=== PATIENT | female | born 1965 | race Caucasian/White ===

== ENCOUNTER 2023-10-17 14:26 | Emergency (ER) | payer OTHER ==
[~2023-10-17] VITALS: Ht 175.3 cm; Wt 90.2 kg
[2023-10-17] MEDS ORDERED: VENTOLIN HFA18 GM INH (14:42)
[2023-10-17] MEDS ORDERED: CARVEDILOL3.125 MG PO (14:42)
[2023-10-17] MEDS ORDERED: PRAVASTATIN SOD20 MG PO (14:42)
[2023-10-17] MEDS ORDERED: ALBUTEROL/IPRATROPIUM 3 ML NEB INH ONE (16:45)
[2023-10-17] MEDS ORDERED: predniSONE 20 MG TAB PO ONE (18:30)
[2023-10-17] MEDS ORDERED: PREDNISONE20 MG PO (18:30)
[2023-10-17 18:41] VITALS: BP 135/83
--- NOTE | 2023-10-17 21:37 | EKG ---
[facility] [address] [place] [address] Signed Normal sinus rhythm Nonspecific ST and T wave abnormality Abnormal ECG No previous ECGs available Confirmed by Itz Balderrama MD () on 10/17/2023 9:37:33 PM Electronically Signed By: ITZ BALDERRAMA MD 10/17/23 [id number] PATIENT NAME: HUNG WHEELER Electrocardiogram DATE OF : 65 PHYSICIAN: ITZ BALDERRAMA MD REPORT #: [id number] REPORT IS CONFIDENTIAL AND NOT TO BE RELEASED WITHOUT AUTHORIZATION
== END 2023-10-17 18:42 | disposition home or self-care (01) ==
LOC: ED 14:26
DX: J06.9 Acute upper respiratory infection, unspecified (principal); J98.01 Acute bronchospasm; I10 Essential (primary) hypertension; E78.00 Pure hypercholesterolemia, unspecified; Z79.51 Long term (current) use of inhaled steroids; Z79.899 Other long term (current) drug therapy
CPT/HCPCS: 71045; 93005; 93010; 94640; 99285-25; J7512